=== PATIENT | female | born 1935 | race Caucasian/White ===

== ENCOUNTER → 2016-08-05 | Outpatient (CLI) | payer MEDICARE, OTHER | END | disposition home or self-care (01) | LOC: GMAL 10:46 | PROVIDERS: ATTEND Family Medicine | DX: R53.83 Other fatigue (principal); D51.3 Other dietary vitamin B12 deficiency anemia; E55.9 Vitamin D deficiency, unspecified ==

== ENCOUNTER → 2017-04-08 | Outpatient (CLI) | payer MEDICARE, OTHER ==
--- NOTE | 2017-04-10 21:07 | US ---
EXAM DESCRIPTION: Thyroid: Ultrasound. CLINICAL HISTORY: NODULE COMPARISON: None. TECHNIQUE: Transcutaneous scannin-dimensional and Doppler modes. FINDINGS: Right lobe dimensions 4.2 x 2.2 x 2.1 cm. Heterogeneous echoes. Mixed echogenic nodule lower right lobe measuring 1.5 cm transverse. 2.5 x 1.4 cm in the sagittal plane. Possible cystic component. Peripherally vascular. 11 x 4 x 6 mm nodule in the upper lobe echogenic and nonvascular. Decreased vascularity in the right lobe. No microcalcifications. Contour right lobe smooth. Juxta-thyroid masses/fluid: none. Left lobe dimensions 4.3 x 1.5 x 1.4 cm. Heterogeneous echoes. Heterogeneous nodule in the mid lobe measuring 8.8 x 5.7 x 5.0 mm. Not vascular. Heterogeneous nodule in the upper pole measuring 5.4 x 4.1 x 3.3 mm. Nonvascular. Minimal vascularity in the remainder of the lobe. No microcalcifications. Contour left lobe smooth. Juxta-thyroid masses/fluid: none. Isthmus thickness 2.5 mm. Heterogeneous echoes. No cystic, no solid, and no complex lesions. Normal vascularity in the isthmus. Contour smooth. IMPRESSION: 1. Heterogeneous nodule in the lower right lobe of the thyroid gland 1.5 cm transverse diameter. This nodule meets the imaging criteria for Fine needle aspiration sampling according to RP best practice guidelines, adopted from ACR white paper and Freeman 3-tiered guidelines on incidental thyroid nodules. Other nodules bilaterally do not meet these criteria. Please see below.* These recommendations do not apply to patients with increased risk for thyroid cancer or patients with symptomatic thyroid disease. 2. No discrete solid masses, cystic masses, or edema in the surrounding soft tissues. *Further evaluation by thyroid US recommended for: -Solitary incidental thyroid nodule (ITN) with high risk imaging features (locally invasive nodule or suspicious lymph nodes) -Solitary ITN of any size in pediatric patients <= 18 years of age -Solitary ITN >= 1 cm in axial plane in patients between 18 and 35 years of age -Solitary ITN >= 1.5 cm in axial plane in patients >= 35 years of age -Heterogeneous enlarged thyroid gland -ITN avid on FDG-PET or other nuclear medicine (MIBI and octreotide) scans. FNA biopsy is also recommended for PET avid nodules. 2.No f/u imaging is recommended for ITN's not meeting the above criteria. 3.For multiple thyroid nodules, the above recommendations for solitary ITN are to be applied to the largest nodule. 4.No US or f/u recommended for ITN's without high risk features in patients with limited life expectancy or significant co-morbidities, unless clinically warranted. 5.These recommendations do not apply to patients w/ increased risk for thyroid cancer or patients with symptomatic thyroid disease. Recommendations for f/u of Incidental Thyroid Nodules (ITN) found on CT, MR, NM and Extrathyroidal US are based upon the ACR white paper and Freeman 3-tiered system for managing ITN's: J [facility] 2015 Jun;12(2): 143-50 Electronically signed by: Vaughn Gonzalez MD 04/10/2017 9:06 PM [facility]
== END | disposition home or self-care (01) ==
LOC: US 09:57
PROVIDERS: ATTEND Family Medicine
DX: E04.1 Nontoxic single thyroid nodule (principal)

== ENCOUNTER → 2017-04-28 | Outpatient (CLI) | payer MEDICARE, OTHER ==
--- NOTE | 2017-04-29 08:33 | US ---
EXAM DESCRIPTION: Biopsy of Thyroid: Ultrasound. CLINICAL HISTORY: 82 yearsFemale. Large abnormal nodule right lobe of the thyroid. No symptoms. Difficulty sleeping and coughing. COMPARISON: Ultrasound of the thyroid gland 04/08/2017. TECHNIQUE: Procedure was explained to the patient with risks and benefits. The patient gave verbal and written consent. Sterile preparation draping. 1% xylocaine dermal anesthetic. Sterile ultrasound guidance. A total of 4 passes into right thyroid nodule.; 3 needle samplings with a separate 1.5 inch, 25-gauge needle per sample, and 1 aspiration, with a separate 1.5 inch, 25-gauge needle/10-cc syringe set, per aspiration. Each sample was placed on a separate slide and fixed in 95% alcohol container. for later pathologic examination at remote facility. . Aspirate and needle placed in Saccomanno fluid container. Patient tolerated procedure well, with no immediate complications. FINDINGS: The nodule is slightly hypoechoic to the remainder of the thyroid gland with hypoechoic rim. Dimensions are 1.5 cm transverse and 2.5 x 1.4 cm in the sagittal plane. A second nodule measures 11 mm in greatest diameter. These nodules are not vascular. Overall gland shows decreased vascularity. Multiple images show the echogenic needle within the large right thyroid lobe nodule. No abnormal fluid collection or echoes after the procedure. IMPRESSION: Successful, ultrasound-guided fine-needle aspiration and sampling of right thyroid nodule. No immediate complications. Pathology reports are pending. Electronically signed by: Vaughn Gonzalez MD 04/29/2017 8:32 AM PHILOSOPHY SPECIALIST
== END | disposition home or self-care (01) ==
LOC: US 12:48
PROVIDERS: ATTEND Family Medicine
DX: E04.2 Nontoxic multinodular goiter (principal)

== ENCOUNTER → 2017-09-26 | Outpatient (CLI) | payer MEDICARE, OTHER | LOC: GMAL 10:36 | PROVIDERS: ATTEND Family Medicine | DX: D51.3 Other dietary vitamin B12 deficiency anemia (principal); R53.83 Other fatigue; E55.9 Vitamin D deficiency, unspecified ==

== ENCOUNTER → 2017-10-17 | Outpatient (CLI) | payer MEDICARE, OTHER ==
--- NOTE | 2017-10-17 15:47 | US ---
THYROID ULTRASOUND CLINICAL INFORMATION: Thyroid nodule. TECHNIQUE: Routine transcutaneous scannin-D and Doppler modes. COMPARISON: Thyroid ultrasound 04/08/2017. FINDINGS: Thyroid size: Right 4.4 x 2.3 x 2.0 cm. Left 4.1 x 1.9 x 1.3 cm. Isthmus 0.21 mm thickness. Texture: Heterogeneous Estimated total number of nodules >/=1 cm: 1 Number of spongiform nodules >/=2 cm not described below (TR1): 0 Number of mixed cystic and solid nodules >/=1.5 cm not described below (TR2): 0 Nodule #: 1 Maximum size: 2.5 cm; All dimensions 1.2 x 1.0 cm Location: right; mid Composition: solid/almost completely solid (2) Echogenicity: hypoechoic (2) Shape: not [id number] (0) Margins: smooth (0) Echogenic foci: none (0) ACR TI-RADS total points: 4. ACR TI-RADS risk category: TR4 (4-6 points) Significant change in size (>/= 20% in two dimensions and minimal increase of 2 mm): No Change in features: No Change in ACR TI-RADS risk category: No ACR TI-RADS recommendation: Ultrasound-guided fine needle aspiration Nodule #: 2 Maximum size: 0.9 cm; All dimensions 0.7 x 0.5 cm Location: left; mid Composition: solid/almost completely solid (2) Echogenicity: hypoechoic (2) Shape: not [id number]-[id number] (0) Margins: smooth (0) Echogenic foci: none (0) ACR TI-RADS total points: 4. ACR TI-RADS risk category: TR4 (4-6 points) Significant change in size (>/= 20% in two dimensions and minimal increase of 2 mm): No Change in features: No Change in ACR TI-RADS risk category: No ACR TI-RADS recommendation: No further follow-up Nodule #: 3 Maximum size: 0.5 cm; All dimensions 0.5 x 0.3 cm Location: left; mid Composition: solid/almost completely solid (2) Echogenicity: very hypoechoic (3) Shape: not yruduw-celf-nbje (0) Margins: smooth (0) Echogenic foci: none (0) ACR TI-RADS total points: 5. ACR TI-RADS risk category: TR4 (4-6 points) Significant change in size (>/= 20% in two dimensions and minimal increase of 2 mm): No Change in features: No Change in ACR TI-RADS risk category: No ACR TI-RADS recommendation: No further follow-up Scanning of the soft tissues around the thyroid gland shows no distinct solid mass or cyst. No parenchymal edema or large calcifications. No overlying skin changes, no abnormal Doppler vascularity. IMPRESSION: 1. Solid and hypoechoic 2.5 cm mass in the right mid to lower lobe with ACR TI-RADS risk category TR 4. Stable since the prior study March 2017. RP Best Practice recommendations based upon ACR TI-RADS recommendations is for ultrasound-guided fine-needle aspiration biopsy sampling. Please see below.* 2. 2 hypoechoic solid nodules in the left lobe are stable since the prior study. These nodules are ACR TI-RADS risk category TR 4. However, since greatest diameters less than 1 cm, no ultrasound follow-up is recommended according to the guidelines previously described. 3. Soft tissues around the thyroid gland are unremarkable. *ACR TI-RADS recommendations: TR5 (>/=7 points) - FNA if >/=1 cm, follow-up if 0.5 - 0.9 cm every year for 5 years TR4 (4-6 points) - FNA if >/=1.5 cm, follow-up if 1 - 1.4 cm in 1, 2, 3 and 5 years TR3 (3 points) - FNA if >/=2.5 cm, follow -up if 1.5 - 2.4 cm in 1, 3 and 5 years TR2 (2 points) and TR1 (0 points) - No FNA or follow-up * ACR TI-RADS recommends that no more than two nodules with the highest ACR TI-RADS total point should be biopsied and no more than four nodules should be followed. Electronically signed by: Vaughn Gonzalez MD 10/17/2017 3:45 PM CDT
== END ==
LOC: US 08:00
PROVIDERS: ATTEND Family Medicine
DX: E04.1 Nontoxic single thyroid nodule (principal)

== ENCOUNTER → 2017-11-02 | Outpatient (CLI) | payer MEDICARE, OTHER ==
--- NOTE | 2017-11-02 14:25 | US ---
Thyroid Ultrasound Biopsy CLINICAL INFORMATION: Previous ultrasound guided thyroid biopsy April 28, 2017 did not meet BETHESDA criteria for adequate number of cells for diagnosis. TECHNIQUE: Procedure was explained to the patient with risks and benefits. The patient gave verbal and written consent. Sterile preparation draping. 1% xylocaine dermal anesthetic. Sterile ultrasound guidance. A total of 5 passes right thyroid solid nodule; 3 needle samplings with a separate 1.5 inch, 25-gauge needle per sample, and 2 aspirations, with a separate 1.5 inch, 25-gauge needle/10-cc syringe set, per aspiration. Each sample was placed on a separate slide and fixed in 95% alcohol container. Saccomanno fluid drawn into aspirate needle and rinse injected into Saccomanno container. Specimens to be sent for pathologic examination at remote facility. . Patient tolerated procedure well, with no immediate complications. Biopsy #: 1 Nodule reference number based on prior diagnostic ultrasound:1 Maximum size: 2.5 cm Location: right; lower ACR TI-RADS risk category: TR4 (4-6 points) Reason for biopsy: nondiagnostic on prior biopsy Complications: None IMPRESSION: Successful ultrasound guided, repeat fine needle aspiration and sampling of thyroid nodule, lower right lobe. Electronically signed by: Vaughn Gonzalez MD 11/02/2017 2:24 PM CDT
== END ==
LOC: US 09:00
PROVIDERS: ATTEND Family Medicine
DX: E04.1 Nontoxic single thyroid nodule (principal)

== ENCOUNTER → 2017-12-02 | Outpatient (CLI) | payer MEDICARE, OTHER | LOC: GMAL 11:05 | PROVIDERS: ATTEND Family Medicine | DX: R35.0 Frequency of micturition (principal); N39.41 Urge incontinence ==

== ENCOUNTER 2018-05-29 07:23 | Emergency (ER) | payer MEDICARE, OTHER ==
--- NOTE | 2018-05-29 08:09 | ED.PDOC ---
History of Present Illness - General Chief Complaint: Syncope/Near Syncope Stated Complaint: syncope Time Seen by Provider: 05/29/18 07:48 Source: patient Exam Limitations: no limitations - History of Present Illness Initial Comments: Patient presents after having two syncopal episodes this morning. She was on the toilet when the first one happened. Just after that, she walked down the [place] and a second one occurred. She denied hitting her head. Does not take blood thinners. These were unwitnessed. She says she was unconscious for only a few seconds. Denies previous episodes. She has pain in the mid-third of her left anterior femur that she says is "in the muscle" from the second fall. The pain is mildly worse with movement of the upper left leg. Sharp in nature. Non-ra diating. No previous injuries to the area. She has had a DX of RSV for 5 days and has been taking nebulizer treatments and trying to stay hydrated. She has had many coughing spells. She has no paresthesias. No cardiac history or history of CVA. Takes Lisinopril but otherwise, no chronic medications. No other complaints. No DM/hx of smoking/COPD/hyperlipidemia. Her son had an AMI. Timing/Duration: 1/2 hour Severity: mild Improving Factors: nothing Worsening Factors: nothing Associated Symptoms: other - as in HPI Allergies/Adverse Reactions: Allergies NO KNOWN ALLERGY Allergy (Verified 05/29/18 07:38) Review of Systems - Review of Systems Constitutional: States: no symptoms reported EENTM: States: no symptoms reported Respiratory: States: see HPI Cardiology: States: no symptoms reported Gastrointestinal/Abdominal: States: no symptoms reported Genitourinary: States: no symptoms reported Musculoskeletal: States: see HPI Skin: States: no symptoms reported Neurological: States: see HPI Endocrine: States: no symptoms reported Hematologic/Lymphatic: States: no symptoms reported Past Medical History (General) - Patient Medical History Surgical History: cholecystectomy, Hysterectomy - Vaccination History Hx Influenza Vaccination: Yes Hx Pneumococcal Vaccination: Yes - Social History Hx Tobacco Use: No Hx Alcohol Use: No Hx Substance Use: No Hx Substance Use Treatment: No Hx Depression: No Family Medical History - Family History Mother Family History: Unknown Physical Exam - Physical Exam General Appearance: Alert Eye Exam: bilateral normal Ears, Nose, Throat: normal ENT inspection Neck: non-tender, full range of motion, supple Respiratory: lungs clear, normal breath sounds Cardiovascular/Chest: normal peripheral pulses, regular rate, rhythm, no edema Gastrointestinal/Abdominal: normal bowel sounds, non tender, soft Back Exam: normal inspection, no CVA tenderness, no vertebral tenderness Extremity: normal range of motion, non-tender, normal inspection, no pedal edema Neurologic: pluck trimmer II-XII nml as tested, no motor/sensory deficits, alert, normal mood/affect, oriented x 3 Skin Exam: normal color Lymphatic: no adenopathy Progress - Progress Progress: 05/29/18 12:12 Laboratory Tests 05/29/18 05/29/18 05/29/18 08:32 08:32 09:20 WBC 6.2 RBC 4.48 Hgb 14.0 Hct 41.9 MCV 93.5 MCH 31.3 H MCHC 33.5 RDW 13.8 Plt Count 178 MPV 7.1 L Absolute Neuts (auto) 4.90 Absolute Lymphs (auto) 0.60 L Absolute Monos (auto) 0.60 Absolute Eos (auto) 0.10 Absolute Basos (auto) 0.00 Neutrophils % 79.2 H Lymphocytes % 9.9 L Monocytes % 9.2 H Eosinophils % 1.2 Basophils % 0.5 D-Dimer, Quantitative Sodium 138 Potassium 3.8 Chloride 106 Carbon Dioxide 23 Anion Gap 12.8 BUN 11 Creatinine 0.87 BUN/Creatinine Ratio 12.6 Random Glucose 123 H Serum Osmolality 276.4 Calcium 8.8 Total Bilirubin 0.6 AST 47 H ALT 44 Alkaline Phosphatase 77 Serum Total Protein 6.3 L Albumin 3.4 Globulin 2.9 Albumin/Globulin Ratio 1.2 Urine Color Yellow Urine Appearance Clear Urine pH 6.5 Ur Specific [place] 1.010 Urine Protein Negative Urine Glucose (UA) Negative Urine Ketones Negative Urine Blood Negative Urine Nitrite Negative Urine Bilirubin Negative Urine Urobilinogen 0.2 Ur Leukocyte Esterase Negative Urine RBC 0 Urine WBC 0 Ur Epithelial Cells 0 Urine Bacteria 0 05/29/18 09:55 WBC RBC Hgb Hct MCV MCH MCHC RDW Plt Count MPV Absolute Neuts (auto) Absolute Lymphs (auto) Absolute Monos (auto) Absolute Eos (auto) Absolute Basos (auto) Neutrophils % Lymphocytes % Monocytes % Eosinophils % Basophils % D-Dimer, Quantitative 6.17 H* Sodium Potassium Chloride Carbon Dioxide Anion Gap BUN Creatinine BUN/Creatinine Ratio Random Glucose Serum Osmolality Calcium Total Bilirubin AST ALT Alkaline Phosphatase Serum Total Protein Albumin Globulin Albumin/Globulin Ratio Urine Color Urine Appearance Urine pH Ur Specific [place] Urine Protein Urine Glucose (UA) Urine Ketones Urine Blood Urine Nitrite Urine Bilirubin Urine Urobilinogen Ur Leukocyte Esterase Urine RBC Urine WBC Ur Epithelial Cells Urine Bacteria CT head unremarkable for acute process. D-dimer elevated. CTA chest showed moderate bilateral pulmonary embolisms. She was given heparin 5000 IU IV bolus and then 18 IU/KG/Hr drip. Accepted and [facility] for transfer. The diagnosis was discussed with the patient who voiced understanding and agreement with the plan. Accepted by Dr. Perez. Departure - Departure Clinical Impression: Pulmonary embolism Disposition: Transfer to Hospital Condition: Serious Departure Forms: ED Discharge - Pt. Copy, Patient Portal Self Enrollment Diet: other - NPO Activity: as per physical therapy Referrals: Sterling King III, MD [Primary Care Provider] - 1-2 Weeks
--- NOTE | 2018-05-29 09:12 | RAD ---
Study: Single Frontal View of the Chest. Indication:syncope Comparison: None. Impression: Mild cardiomegaly. Thoracic aorta tortuous. Lungs hyperexpanded. Blunting left costophrenic angle which could reflect scarring or tiny pleural effusion. Otherwise, lungs clear. No acute osseous abnormality. Electronically signed by: Dilan Herrera MD 05/29/2018 9:11 AM MANAGER OF FINANCIAL
--- NOTE | 2018-05-29 09:13 | RAD ---
EXAM DESCRIPTION: Femur,Left CLINICAL HISTORY: pain after fall COMPARISON: None. IMPRESSION: 2 views of the left femur show diffuse osteopenia the osseous structures without acute fracture, focal bone destruction, or joint dislocation. Mild joint space narrowing of the left hip is seen consistent with osteoarthritic changes. Evaluation for fracture is limited given the degree of osteopenia. If high clinical concern for acute fracture, correlation with MRI recommended given its greater sensitivity in the osteopenic patient. If the patient cannot tolerate MRI imaging or more urgent imaging is required, CT could be performed, however it is less sensitive in the osteopenic patient when compared to MRI. Electronically signed by: Ivan Claros MD 05/29/2018 9:12 AM DIESEL MECHANIC HELPER
--- NOTE | 2018-05-29 10:48 | CT ---
Study: CT of the Head. Indication: syncope Technique: Axial CT images of the head were acquired without intravenous contrast. This exam was performed according to our departmental dose-optimization program, which includes automated exposure control, adjustment of the mA and/or kV according to patient size and/or use of iterative reconstruction technique. Comparison: None. Findings: No acute ischemia, acute hemorrhage, mass, mass effect, midline shift, or extra-axial fluid collection identified by CT. Ventricles are normal in configuration without hydrocephalus. Patchy hypoattenuation of the periventricular and subcortical white matter noted. This is nonspecific but most consistent with chronic microvascular ischemic change. Global parenchymal volume loss and intracranial atherosclerosis noted as well. Scattered mild to moderate paranasal sinus mucosal disease and tiny air-fluid levels in the bilateral maxillary sinuses. Mastoid air cells are adequately aerated. Osseous structures and soft tissues are unremarkable. Impression: 1. No acute intracranial abnormality by CT. 2. Senescent changes. 3. Scattered mild to moderate renal sinus mucosal disease with tiny air-fluid levels in the bilateral maxillary sinuses. Electronically signed by: Dilan Herrera MD 05/29/2018 10:47 AM [facility]
[2018-05-29] MEDS ORDERED: HEPARIN SODIUM (PORCINE) 5,000 U/ML VIAL IV ONE (11:59)
[2018-05-29] MEDS ORDERED: HEPARIN PREMIX 25,000 UNITS in PREMIX BAG 1 BAG IVS SCH (12:00)
--- NOTE | 2018-05-29 12:00 | CT ---
EXAM DESCRIPTION: CTA Chest CLINICAL HISTORY: suspected pulmonary embolism COMPARISON: No comparisons TECHNIQUE: Postcontrast CT images of the chest are obtained using pulmonary embolism imaging protocol. Three-D MIP reconstructed images of the arterial vasculature are obtained. Coronal and sagittal reconstructed images of the also provided. This exam was performed according to our departmental dose-optimization program, which includes automated exposure control, adjustment of the mA and/or kV according to patient size and/or use of iterative reconstruction technique . FINDINGS: Heart is mildly enlarged. Bchu-mt-yqhhgcsm coronary artery calcifications are seen. Scattered calcified plaque of the thoracic aorta and great vessels with tortuosity the thoracic aorta is seen. No aneurysmal dilatation or dissection. Multiple filling defects are seen in the second and third division branches of the bilateral upper and lower lobe pulmonary arteries with complete obstruction and lack of surrounding opacification involving branches in the right lower lobe. No pleural or pericardial effusion is seen. Visualized portion of the upper abdomen shows 10 mm cyst in the left lobe of liver. Lungs are normally aerated. Linear interstitial thickening primarily in the right lower lobe is seen. Mild interstitial thickening in the anterior left lower lobe is noted. No pathologic lymphadenopathy. Calcified pulmonary nodules are seen consistent with old granulomatous disease. IMPRESSION: Moderate bilateral pulmonary emboli are seen mainly involving second and third division branches and most significant in the right lower lobe. No reflux of contrast into the hepatic veins or IVC seen to suggest right heart dysfunction. Interstitial thickening suggest atelectasis versus scarring versus developing infiltrate or pulmonary infarct in the right lower lobe. Findings on this exam were called to Dr. Joe Drew at 05/29/2018 11:58 AM VEHICLE CHECK IN CLERK. Electronically signed by: Ivan Claros MD 05/29/2018 11:59 AM VEHICLE CHECK IN CLERK
[2018-05-29] MEDS ORDERED: HEPARIN PREMIX 500 ML ONE (12:08)
[2018-05-29 13:13] VITALS: BP 155/86; O2SAT 95
[2018-05-29 13:43] VITALS: TEMP 99.1
== END 2018-05-29 13:11 | disposition short-term general hospital (02) ==
LOC: ER 07:23
DX: I26.99 Other pulmonary embolism without acute cor pulmonale (principal); R55 Syncope and collapse; M79.652 Pain in left thigh; Z79.899 Other long term (current) drug therapy
CPT/HCPCS: 36415; 70450; 71045; 71275; 73551; 80053; 81001; 85025; 85379; 85610; 85730; 93005; J1644

== ENCOUNTER → 2018-07-13 | Outpatient (CLI) | payer MEDICARE, OTHER ==
--- NOTE | 2018-07-14 08:25 | RAD ---
EXAM DESCRIPTION: Barium Swallow: Rad-Fluoroscopy. CLINICAL HISTORY: DYSPHAGIA. "Trouble swallowing, strangling and choking feeling." COMPARISON: None TECHNIQUE: The patient swallowed barium pill with water. The patient swallowed gas-producing granules, water, and heavy density barium under fluoroscopic visualization. The images were obtained with the patient upright and horizontal. Patient drank medium density barium through a straw in the semi-prone position. 111 fluoroscopic cine loop images. 10 static fluoroscopic images. Total fluoroscopy time was 2.9 minutes.. DAP: 16.33 Gy-cm2.. FINDINGS: No significant delay in transit of the barium pill from the oral cavity to the stomach. At initiation of swallow, contrast enters the hypopharynx and larynx more to the right than the left. Minimum of 2 swallows required to empty the oral cavity. No yanick laryngeal penetration or aspiration. Primary peristaltic wave ends approximately mid esophagus with tertiary and secondary contractions in the distal esophagus. Also reverse peristalsis. Narrowing of the GE junction but no obstruction. No mass effect. No mucosal lesions. No hiatal hernia or gastroesophageal reflux noted. No gross mucosal lesions or mass effect in the stomach. IMPRESSION: 1. Asymmetric swallowing. Minimum 2 swallows required to empty oral cavity. 2. No yanick laryngeal aspiration. 3. Secondary and tertiary contractions in the distal esophagus with reverse peristalsis. No mass effect on the esophagus and no mucosal lesions. 4. No hiatal hernia or significant gastroesophageal reflux. Electronically signed by: Vaughn Gonzalez MD 07/14/2018 8:23 AM SILK FOLDER
== END ==
LOC: RAD 09:00
PROVIDERS: ATTEND Family Medicine
DX: R13.10 Dysphagia, unspecified (principal)

== ENCOUNTER → 2018-09-06 | Outpatient (CLI) | payer MEDICARE, OTHER ==
--- NOTE | 2018-09-06 17:15 | US ---
EXAM DESCRIPTION: Venous,Lower Extremity LT: ULTRASOUND. CLINICAL HISTORY: PULMONARY EMBOLISM COMPARISON: None Available. TECHNIQUE: Steve-scale and doppler sonographic evaluation of the deep venous system of the left lower extremity. FINDINGS: Doppler evaluation shows normal color flow and normal phasicity and augmentation of the left common femoral vein, femoral vein, popliteal vein, greater saphenous vein, peroneal, and posterior tibial vein. The left lower extremity deep veins were completely compressible; normal occlusion with transducer pressure. Steve-scale survey showed no echogenic thrombus within these veins. IMPRESSION: 1. Duplex ultrasound evaluation of the left lower extremity deep venous system showing no evidence of thrombosis. Electronically signed by: Vuaghn Gonzalez MD 09/06/2018 5:12 PM CDT
== END ==
LOC: US 10:00
PROVIDERS: ATTEND Family Medicine
DX: I26.99 Other pulmonary embolism without acute cor pulmonale (principal)

== ENCOUNTER → 2018-11-01 | Outpatient (CLI) | payer MEDICARE, OTHER | LOC: GMAL 10:30 | PROVIDERS: ATTEND Family Medicine | DX: D51.3 Other dietary vitamin B12 deficiency anemia (principal); I10 Essential (primary) hypertension; R53.1 Weakness; E55.9 Vitamin D deficiency, unspecified; E78.49 Other hyperlipidemia ==

== ENCOUNTER → 2018-11-21 | Outpatient (CLI) | payer MEDICARE, OTHER ==
--- NOTE | 2018-11-21 15:40 | US ---
EXAM DESCRIPTION: Venous,Lower Extremity LT (accession [id number]), Venous,Lower Extremity RT (accession [id number]): Ultrasound. CLINICAL HISTORY: HX OF EMBOLISM COMPARISON: None Available. TECHNIQUE: Two -dimensional and doppler sonographic evaluation of the deep venous system of the bilateral lower extremities.. Dr. yates evaluation of the left lower extremity deep venous system on 09/06/2018. FINDINGS: Doppler evaluation shows normal color flow and normal phasicity and augmentation of the bilateral common femoral veins, femoral veins, popliteal veins, greater saphenous vein, and peroneal veins, and Posterior tibial veins. These veins showed normal occlusion with transducer pressure. Two-dimensional survey showed no echogenic clot within these veins. IMPRESSION: Duplex ultrasound evaluation of the bilateral lower extremity deep venous systems showing no evidence of thrombosis. Electronically signed by: Vaughn Gonzalez MD 11/21/2018 3:38 PM CDT
--- NOTE | 2018-11-21 15:40 | US ---
EXAM DESCRIPTION: Venous,Lower Extremity LT (accession [id number]), Venous,Lower Extremity RT (accession [id number]): Ultrasound. CLINICAL HISTORY: HX OF EMBOLISM COMPARISON: None Available. TECHNIQUE: Two -dimensional and doppler sonographic evaluation of the deep venous system of the bilateral lower extremities.. Dr. yates evaluation of the left lower extremity deep venous system on 09/06/2018. FINDINGS: Doppler evaluation shows normal color flow and normal phasicity and augmentation of the bilateral common femoral veins, femoral veins, popliteal veins, greater saphenous vein, and peroneal veins, and Posterior tibial veins. These veins showed normal occlusion with transducer pressure. Two-dimensional survey showed no echogenic clot within these veins. IMPRESSION: Duplex ultrasound evaluation of the bilateral lower extremity deep venous systems showing no evidence of thrombosis. Electronically signed by: Vaughn Gonzalez MD 11/21/2018 3:38 PM CDT
== END ==
LOC: US 13:35
PROVIDERS: ATTEND Family Medicine
DX: I80.292 Phlebitis and thrombophlebitis of other deep vessels of left lower extremity (principal); I80.291 Phlebitis and thrombophlebitis of other deep vessels of right lower extremity; Z86.718 Personal history of other venous thrombosis and embolism

== ENCOUNTER → 2019-03-13 | Outpatient (CLI) | payer MEDICARE, OTHER ==
--- NOTE | 2019-03-13 17:08 | US ---
EXAM DESCRIPTION: Venous,Lower Extremity RT (accession [id number]), Venous,Lower Extremity LT (accession [id number]): Ultrasound. CLINICAL HISTORY: Edema. Bilateral lower extremity. COMPARISON: Bilateral lower extremity deep venous system duplex ultrasound examination 11/21/2018. TECHNIQUE: Two -dimensional and doppler sonographic evaluation of the deep venous system of the bilateral lower extremities. FINDINGS: Doppler evaluation shows normal color flow and normal phasicity and augmentation of the bilateral common femoral veins, junctions with the bilateral proximal saphenous veins, deep femoral veins, femoral veins, popliteal veins, greater saphenous vein junctions with the CFV bilaterally, peroneal and posterior tibial veins. These veins showed normal occlusion with transducer pressure. Two-dimensional survey showed no echogenic clot within these veins. IMPRESSION: Duplex ultrasound evaluation of the bilateral lower extremity deep venous systems showing no evidence of thrombosis. Electronically signed by: Vaughn Gonzalez MD 03/13/2019 5:06 PM CDT
--- NOTE | 2019-03-13 17:08 | US ---
EXAM DESCRIPTION: Venous,Lower Extremity RT (accession [id number]), Venous,Lower Extremity LT (accession [id number]): Ultrasound. CLINICAL HISTORY: Edema. Bilateral lower extremity. COMPARISON: Bilateral lower extremity deep venous system duplex ultrasound examination 11/21/2018. TECHNIQUE: Two -dimensional and doppler sonographic evaluation of the deep venous system of the bilateral lower extremities. FINDINGS: Doppler evaluation shows normal color flow and normal phasicity and augmentation of the bilateral common femoral veins, junctions with the bilateral proximal saphenous veins, deep femoral veins, femoral veins, popliteal veins, greater saphenous vein junctions with the CFV bilaterally, peroneal and posterior tibial veins. These veins showed normal occlusion with transducer pressure. Two-dimensional survey showed no echogenic clot within these veins. IMPRESSION: Duplex ultrasound evaluation of the bilateral lower extremity deep venous systems showing no evidence of thrombosis. Electronically signed by: Vaughn Gonzalez MD 03/13/2019 5:06 PM CDT
== END ==
LOC: US 13:56
PROVIDERS: ATTEND Family Medicine
DX: R60.0 Localized edema (principal)

== ENCOUNTER → 2019-09-28 | Outpatient (CLI) | payer MEDICARE, OTHER | LOC: GMAL 10:40 | PROVIDERS: ATTEND Family Medicine | DX: D51.3 Other dietary vitamin B12 deficiency anemia (principal); R53.1 Weakness; E55.9 Vitamin D deficiency, unspecified; I10 Essential (primary) hypertension; E78.49 Other hyperlipidemia ==

== ENCOUNTER → 2019-11-02 | Outpatient (CLI) | payer MEDICARE, OTHER ==
--- NOTE | 2019-11-02 13:16 | US ---
EXAM DESCRIPTION: Venous,Lower Extremity LT: ULTRASOUND. CLINICAL HISTORY: PHLEBITIS AND THROMBOPHLEBITIS OF LEFT FEMORAL VEIN COMPARISON: Bilateral lower extremity deep venous duplex ultrasound evaluation February 2019. TECHNIQUE: Steve-scale and doppler sonographic evaluation of the deep venous system of the left bilateral lower extremity. FINDINGS: Doppler evaluation shows normal color flow and normal phasicity and augmentation of the left common femoral vein, femoral vein, popliteal vein, greater saphenous vein, junction with the CFV. Also normal color flow and normal phasicity and augmentation of the peroneal, and posterior tibial vein. The left lower extremity deep veins were completely compressible; normal occlusion with transducer pressure. Steve-scale survey showed no echogenic thrombus within these veins. IMPRESSION: 1. Duplex ultrasound evaluation of the left lower extremity deep venous system showing no evidence of thrombosis. Electronically signed by: Vaughn Gonzalez MD 11/02/2019 1:15 PM CDT
== END ==
LOC: US 09:30
PROVIDERS: ATTEND Family Medicine
DX: I80.12 Phlebitis and thrombophlebitis of left femoral vein (principal)

== ENCOUNTER → 2020-02-29 | Outpatient (CLI) | payer MEDICARE, OTHER | LOC: LAB.O 09:43 | PROVIDERS: ATTEND Family Medicine | DX: I82.622 Acute embolism and thrombosis of deep veins of left upper extremity (principal) ==

== ENCOUNTER → 2020-05-19 | Outpatient (CLI) | payer MEDICARE, OTHER ==
--- NOTE | 2020-05-19 11:16 | CT ---
CT CHEST ANGIOGRAPHY WITH IV CONTRAST HISTORY: 85 years Female other pulmonary embolism without acute cor pulmonale COMPARISON: February 22, 2020. TECHNIQUE: Helical tomographic images of the chest were obtained after the administration of intravenous contrast per facility angiogram protocol. 3-D MIP reconstructions were created. Coronal and sagittal reformatted images were also provided. This exam was performed according to our departmental dose-optimization program, which includes automated exposure control, adjustment of the mA and/or kV according to patient size and/or use of iterative reconstruction technique. FINDINGS: Diagnostic quality: Adequate. Pulmonary arteries: Redemonstrated occlusion of the right lower lobe pulmonary artery, similar dating back to May 29, 2018, likely representing chronic pulmonary embolus. Remaining pulmonary arteries demonstrate normal enhancement throughout consistent with patency. Diameter of the right main pulmonary artery measures slightly above normal (2.5 cm) but is decreased from the prior comparison which may represent improved pulmonary artery pressures relative to prior. Lungs and central airways: 8 mm solid subpleural nodule in the right lower lobe (5/121), slightly increased in size from the prior comparison study (5 mm when measured in a similar fashion). Scattered linear opacities consistent with scarring are again noted in the right lower lung, similar to prior. Mild subsegmental atelectatic changes in the left lung base and left lungs are otherwise clear. Pleura: No pleural effusion or pleural thickening. Heart/pericardium: Right atrium again appears enlarged but appears decreased in size from prior comparison study. No evidence of right heart strain by CT. Trace pericardial fluid. Mediastinum/suha: No mediastinal or hilar mass or lymphadenopathy. Systemic vasculature: There are scattered atherosclerotic changes noted, including involvement of the coronary arteries. Regional surrounding soft tissues: No acute process detected. Bones: No acute process detected. Included abdomen: No acute process detected. Gallbladder is surgically absent. IMPRESSION: Persistent occlusion of the right lower lobe pulmonary artery, suggesting chronic embolus. Remainder of the pulmonary arterial vasculature demonstrates normal enhancement throughout. Persistent but decreased enlargement of the right main pulmonary artery and right atrium, again suggestive of elevated pulmonary arterial pressures. 8 mm solid subpleural right lower lobe pulmonary nodule, slightly increased in size from the prior comparison study. Neoplasm would be possible. PET/CT may provide increased diagnostic confidence although size of the nodule is at the lower limits of sensitivity of PET/CT. CT-guided biopsy could also be considered. At a minimum, 3 month follow-up chest CT is recommended to assess stability. Electronically signed by: Rhys Soriano MD 05/19/2020 11:15 AM [facility]
== END ==
LOC: CT 09:38
PROVIDERS: ATTEND Family Medicine
DX: I26.99 Other pulmonary embolism without acute cor pulmonale (principal); R91.1 Solitary pulmonary nodule